=== PATIENT | male | born 1980 | race Caucasian/White ===

== ENCOUNTER 2016-11-23 00:45 | Emergency (ER) | payer OTHER ==
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
[2016-11-23 01:36] LABS: CHLORIDE,CL 103 mmol/L (98-110); SODIUM,NA 139 mmol/L (136-146)
[2016-11-23] MEDS ORDERED: Alum Hydrox/Mag Hydrox/Simeth 15 ML, Metoclopramide 5 MG, Lidocaine 2% 5 ML PO ONE ×3 (01:56)
[2016-11-23] MEDS ORDERED: Pantoprazole 40 MG Vial IVPUSH ONE (01:56)
[2016-11-23 02:07] VITALS: BP 133/90
--- NOTE | 2016-11-23 11:02 | CR ---
EXAM DATE: 11/23/16 PATIENT'S AGE: 36 Patient: VAMSHI GALINDO Facility: [place], [place] Site . Site : [id number] Study: XRay Chest [id number]/29/2017 1:21:55 AM Ordering Physician: José Miguel Benitez Final Report: INDICATION: Chest pain. TECHNIQUE: Chest radiograph 1 view COMPARISON: None FINDINGS: Cardiovascular and mediastinum: The heart silhouette is normal in size and morphology. The mediastinum is normal in appearance. Lungs and pleural spaces: Both lungs are unremarkable in appearance. No sign of pleural effusion seen. No pneumothorax is identified. Bones and soft tissues: No significant findings. IMPRESSION: 1. No acute cardiopulmonary disease is seen. Dictated by Anshul Subramanian MD @ 11/23/2016 1:34:05 AM Dictated by: Ansuhl Subramanian MD @ 11/23/2016 01:34:12 (Electronic Signature) Report Signed by Proxy. [facility]
== END 2016-11-23 02:50 | disposition home or self-care (01) ==
LOC: MW.ED 00:45
DX: K21.9 Gastro-esophageal reflux disease without esophagitis (principal); F41.1 Generalized anxiety disorder; F43.0 Acute stress reaction; I10 Essential (primary) hypertension
CPT/HCPCS: 71010; 80053; 81001; 82150; 83690; 84484; 85025; 93005; 96374; 99285; A9270; C9113; 99284